=== PATIENT | female | born 1990 | race Caucasian/White ===

== ENCOUNTER 2021-01-28 23:28 | Emergency (ER) | payer OTHER ==
[~2021-01-28] VITALS: Ht 157.5 cm; Wt 94.3 kg
[~2021-01-28 23:28] MED LIST: PRENATAL1 TAB
[2021-01-29] MEDS ORDERED: DUI500 PO (04:00)
[2021-01-29] MEDS ORDERED: ACETAMINOPHEN650 M2 PO (04:00)
== END 2021-01-29 04:09 | disposition home or self-care (01) ==
LOC: ER 23:28
DX: O23.91 Unspecified genitourinary tract infection in pregnancy, first trimester (principal); O26.851 Spotting complicating pregnancy, first trimester; Z3A.01 Less than 8 weeks gestation of pregnancy; R10.2 Pelvic and perineal pain

== ENCOUNTER 2021-02-06 20:54 | Inpatient (IN) | payer OTHER ==
[~2021-02-06] VITALS: Ht 160 cm; Wt 93.4 kg
[~2021-02-06 20:54] MED LIST changes: +ACETAMINOPHEN650 M2 PO; +DUI500 PO
== END 2021-02-09 15:31 | disposition home or self-care (01) | DRG 818 ==
LOC: ER 20:54 → OB/GYN 02-07 01:17
PROVIDERS: ADMIT Obstetrics & Gynecology; ATTEND Obstetrics & Gynecology
PROC: 0UB50ZZ Excision of Right Fallopian Tube, Open Approach (ICD-10-PCS; 2021-02-07)
PROC: 10T20ZZ Resection of Products of Conception, Ectopic, Open Approach (ICD-10-PCS; principal; 2021-02-07 17:45)
DX: O00.101 Right tubal pregnancy without intrauterine pregnancy (principal); O08.1 Delayed or excessive hemorrhage following ectopic and molar pregnancy; Z20.822 Contact with and (suspected) exposure to COVID-19